=== PATIENT | male | born 1990 | race Caucasian/White ===

== ENCOUNTER 2019-01-05 00:27 | Emergency (ER) | payer BC, MEDICAID ==
[2019-01-05 00:42] VITALS: BP 142/99
[2019-01-05] MEDS ORDERED: Ketorolac 60 MG/2 ML SDV IM ONE (00:50)
[2019-01-05] MEDS ORDERED: Acetaminophen/HYDROcodone 325-5 MG Tab PO ONE (00:50)
[2019-01-05] MEDS ORDERED: Acetaminophen 325 MG Tab PO ONE (00:51)
--- NOTE | 2019-01-05 00:57 | EDM.PDOC ---
ED HPI GENERAL MEDICAL PROBLEM - General Chief Complaint: ENT Problem Stated Complaint: TOOTHACHE Time Seen by Provider: 01/05/19 00:52 Source of Information: Reports: Patient History Limitations: Reports: No Limitations - History of Present Illness INITIAL COMMENTS - FREE TEXT/NARRATIVE: pt has a painful left lower molar. He has a temp of 102. He is on augmentin. He was seen in the walk in clinic yesterday. He has a bad headache behind his left eye. He does hurt when he swallows. Onset: Today, Gradual Duration: Hour(s): Location: Reports: Head, Neck, Other (pt is not having pain over his sinuses. ) Associated Symptoms: Reports: Fever/Chills, Headaches Tooth/Teeth Pain Score (Numeric/FACES): 8 - Related Data Allergies Allergy/AdvReac Type Severity Reaction Status Date / Time Sulfa (Sulfonamide Allergy Hives Verified 01/05/19 00:36 Antibiotics) Home Meds: Home Meds Amoxicillin/Potassium Clav [Augmentin 875-125 Tablet] 1 tab PO BID 01/05/19 [ History] Past Medical History - Past Health History Medical/Surgical History: Denies Medical/Surgical History Musculoskeletal History: Reports: Fracture Psychiatric History: Reports: Anxiety - Infectious Disease History Infectious Disease History: Reports: Chicken Pox Social & Family History - Family History Family Medical History: Unobtainable - Tobacco Use Smoking Status *Q: Never Smoker Second Hand Smoke Exposure: No - Caffeine Use Caffeine Use: Reports: Coffee - Recreational Drug Use Recreational Drug Use: No - Living Situation & Occupation Living situation: Reports: Single Occupation: Employed ED ROS ENT - Review of Systems Review Of Systems: See Below Constitutional: Reports: Fever, Chills, Malaise HEENT: Reports: Dental Pain Respiratory: Reports: No Symptoms Cardiovascular: Reports: No Symptoms Endocrine: Reports: No Symptoms GI/Abdominal: Reports: No Symptoms : Reports: No Symptoms Musculoskeletal: Reports: No Symptoms Skin: Reports: No Symptoms Neurological: Reports: No Symptoms Psychiatric: Reports: No Symptoms ED EXAM, ENT - Physical Exam Exam: See Below Text/Narrative:: pt has a very carious tooth on the left lower. He is tender to palpate over the neck area. He has mild facial swelling He is not tender over the maxillary suinus. Exam Limited By: No Limitations General Appearance: Alert, Moderate Distress Ears: Other (left drum has a small amount of fluid behind it. ) Nose: Normal Inspection Mouth/Throat: Pharyngeal Erythema, Throat Swelling Head: Atraumatic Neck: Lymphadenopathy (L) Respiratory/Chest: No Respiratory Distress Cardiovascular: Regular Rate, Rhythm Course - Vital Signs Last Recorded V/S: Last Vital Signs Temp 39.2 C H 01/05/19 00:41 Pulse 78 01/05/19 00:41 Resp 16 01/05/19 00:41 BP 142/99 H 01/05/19 00:41 Pulse Ox 98 01/05/19 00:41 - Orders/Labs/Meds Labs: Laboratory Tests 01/05/19 Range/Units 00:51 WBC 10.1 (4.5-11.0) K/uL RBC 5.47 (4.30-5.90) M/uL Hgb 15.9 H (12.0-15.0) g/dL Hct 45.6 (40.0-54.0) % MCV 83 (80-98) fL MCH 29 (27-31) pg MCHC 35 (32-36) % Plt Count 268 (150-400) K/uL Neut % (Auto) 42 (36-66) % Lymph % (Auto) 46 H (24-44) % [place] % (Auto) 8 H (2-6) % Eos % (Auto) 4 (2-4) % Baso % (Auto) 1 (0-1) % Meds: Medications Discontinued Medications Generic Name Dose Route Start Last Admin Trade Name Freq PRN Reason Stop Dose Admin Acetaminophen 325 mg 01/05/19 00:51 Tylenol PO 01/05/19 00:52 NOW ONE Hydrocodone Bitart/Acetaminophen 1 tab 01/05/19 00:50 01/05/19 01:01 [place] 325-5 Mg PO 01/05/19 00:51 1 tab ONETIME ONE Administration Ceftriaxone Sodium 1 gm/ 0 gm 01/05/19 01:08 01/05/19 01:24 Lidocaine HCl 2.1 ml IM 01/05/19 01:09 1 inj ONETIME ONE Administration Ketorolac Tromethamine 60 mg 01/05/19 00:50 01/05/19 01:02 Toradol IM 01/05/19 00:51 60 mg ONETIME ONE Administration - Re-Assessments/Exams Free Text/Narrative Re-Assessment/Exam: 01/05/19 01:10 pt was given torodol 60 mg im, he was given rocephen 1 gm im. Departure - Departure Time of Disposition: 01:11 Disposition: Home, Self-Care 01 Condition: Fair Clinical Impression: Pharyngitis, Infected tooth - Discharge Information Instructions: Tooth Injuries, [id number] Referrals: PCP,None [Primary Care Provider] - Forms: ED Department Discharge Care Plan Goals: tylenol and motrin for pain and fever, continue augmentin, dental appt Saturday. norco 5/325 q6h prn for severe pain #6
[2019-01-05] MEDS ORDERED: cefTRIAXone 1 GM, Lidocaine 1% 2.1 ML IM ONE ×2 (01:08)
== END 2019-01-05 01:56 | disposition home or self-care (01) ==
LOC: JP.ED 00:27
DX: J02.9 Acute pharyngitis, unspecified (principal); K04.7 Periapical abscess without sinus; Z88.2 Allergy status to sulfonamides
CPT/HCPCS: 36415; 85025; 87081; 87430; 96372; 99283; A9270; J0696; J1885; J2001

== ENCOUNTER 2019-01-17 21:44 | Emergency (ER) | payer MEDICAID ==
[2019-01-17 22:11] VITALS: BP 129/81; PULSE 74
[2019-01-17] MEDS ORDERED: Dental Adhesive 1 Tube DENT ONE (22:42)
[2019-01-17] MEDS ORDERED: Tetracaine HCl/PF 0.5% 4 ML Bottle EYELF ONE (22:54)
[2019-01-17] MEDS ORDERED: HYDROmorphone 1 MG/ML Syringe IM ONE (23:05)
--- NOTE | 2019-01-17 23:06 | EDM.PDOC ---
ED HPI GENERAL MEDICAL PROBLEM - General Chief Complaint: ENT Problem Stated Complaint: TOOTHACHE Time Seen by Provider: 01/17/19 22:39 Source of Information: Reports: Patient History Limitations: Reports: No Limitations - History of Present Illness INITIAL COMMENTS - FREE TEXT/NARRATIVE: went to this am for fx tooth, bottom left #18 Onset: Today Location: Reports: Other (#18 tooth) Severity: Severe Improves with: Reports: None Worsens with: Reports: None Treatments MUSIC HISTORIAN: Reports: Other (see below) (tylenol #3) Left Lower Tooth/Teeth Pain Score (Numeric/FACES): 7 - Related Data Allergies Allergy/AdvReac Type Severity Reaction Status Date / Time Sulfa (Sulfonamide Allergy Hives Verified 01/17/19 22:03 Antibiotics) Home Meds: Home Meds Acetaminophen with Codeine [Acetaminophen-Cod #3] 1 - 2 tab PO Q4H PRN 01/17/19 [History] NK [No Known Home Meds] 01/17/19 [History] Past Medical History - Past Health History Medical/Surgical History: Denies Medical/Surgical History Gastrointestinal History: Reports: GERD Musculoskeletal History: Reports: Fracture Psychiatric History: Reports: Anxiety - Infectious Disease History Infectious Disease History: Reports: Chicken Pox Social & Family History - Family History Family Medical History: Unobtainable - Tobacco Use Smoking Status *Q: Former Smoker Used Tobacco, but Quit: Yes Month/Year Tobacco Last Used: 2014 - Caffeine Use Caffeine Use: Reports: Coffee - Living Situation & Occupation Living situation: Reports: Single Occupation: Employed ED ROS GENERAL - Review of Systems Review Of Systems: See Below Constitutional: Reports: Other (oral pain) HEENT: Reports: No Symptoms (jaw pain) Respiratory: Reports: No Symptoms Skin: Reports: No Symptoms Neurological: Reports: No Symptoms Psychiatric: Reports: No Symptoms ED EXAM, GENERAL - Physical Exam Exam: See Below Exam Limited By: No Limitations General Appearance: Alert, WD/WN, No Apparent Distress Throat/Mouth: Normal Inspection, Normal Lips, Normal Gums, Normal Voice, Other ( #18 tooth, fractured; pain and swelling) Neck: Normal Inspection, Supple, Full Range of Motion Respiratory/Chest: No Respiratory Distress, Lungs Clear Cardiovascular: Regular Rate, Rhythm Extremities: Normal Range of Motion Neurological: Alert, Oriented, CN II-XII Intact, Normal Cognition, Normal Gait Psychiatric: Normal Affect, Normal Mood Skin Exam: Warm, Dry, Intact Course - Vital Signs Last Recorded V/S: Last Vital Signs Temp 96.3 F 01/17/19 22:10 Pulse 74 01/17/19 22:10 Resp 17 01/17/19 22:10 BP 129/81 01/17/19 22:10 Pulse Ox 96 01/17/19 22:10 - Orders/Labs/Meds Meds: Medications Discontinued Medications Generic Name Dose Route Start Last Admin Trade Name Jose Guadalupe PRN Reason Stop Dose Admin Denture Adhesive 1 applic 01/17/19 22:42 01/17/19 23:01 Dentemp Custom DENT 01/17/19 22:43 1 applic ONETIME ONE Administration Hydromorphone HCl 1 mg 01/17/19 23:05 01/17/19 23:10 Dilaudid IM 01/17/19 23:06 1 mg ONETIME ONE Administration Tetracaine HCl 0 ml 01/17/19 22:54 01/17/19 23:01 Tetracaine 0.5% Steri-Unit [place] EYELF 01/17/19 22:55 1 applic ASDIRECTED ONE Administration - Re-Assessments/Exams Free Text/Narrative Re-Assessment/Exam: 01/18/19 13:17 Given dilaudid 1 mg IM; has a cdl a driver; is to follow up with dentist on Saturday. Departure - Departure Time of Disposition: 22:47 Disposition: Home, Self-Care 01 Condition: Good Clinical Impression: Broken tooth - Discharge Information *PRESCRIPTION DRUG MONITORING PROGRAM REVIEWED*: Not Applicable *COPY OF PRESCRIPTION DRUG MONITORING REPORT IN PATIENT WON: Not Applicable Instructions: Tooth Injuries, [id number] Referrals: PCP,None [Primary Care Provider] - Forms: ED Department Discharge Additional Instructions: Get in with your dentist Ice can be helpful DO not drive if you are taking pain medicine - Problem List & Annotations (1) Broken tooth SNOMED Code(s): 73944653 Code(s): S02.5XXA - FRACTURE OF TOOTH (TRAUMATIC), INIT FOR CLOS FX Status : Acute Priority: Low Qualifiers: Encounter type: initial encounter Fracture type: closed Qualified Code(s) : S02.5XXA - Fracture of tooth (traumatic), initial encounter for closed fracture - Problem List Review Problem List Initiated/Reviewed/Updated: Yes
== END 2019-01-17 23:33 | disposition home or self-care (01) ==
LOC: JP.ED 21:44
DX: K03.81 Cracked tooth (principal); Z88.2 Allergy status to sulfonamides; Z87.891 Personal history of nicotine dependence
CPT/HCPCS: 96372; 99282; A9270; J1170

== ENCOUNTER 2021-12-08 20:58 | Emergency (ER) | payer MEDICAID | END 2021-12-08 22:04 | disposition left against medical advice (07) | LOC: JP.ED 20:58 | DX: R11.10 Vomiting, unspecified (principal); Z53.21 Procedure and treatment not carried out due to patient leaving prior to being seen by health care provider ==

== ENCOUNTER 2022-01-22 22:45 | Emergency (ER) | payer MEDICAID ==
[2022-01-22 23:05] VITALS: BP 126/85; PULSE 71
[2022-01-22] MEDS ORDERED: Erythromycin Base 0.5% Ophth Oint 1 GM Tube EYELF ONE (23:22)
[2022-01-22] MEDS ORDERED: Proparacaine 0.5% Ophth Soln 15 ML Bottle EYELF ONE (23:22)
== END 2022-01-23 00:15 | disposition home or self-care (01) ==
LOC: JP.ED 22:45
DX: T15.02XA Foreign body in cornea, left eye, initial encounter (principal); Z88.2 Allergy status to sulfonamides
CPT/HCPCS: 65220; 99283; A9270

== ENCOUNTER 2023-02-14 23:48 | Emergency (ER) | payer MEDICAID ==
[2023-02-14 23:58] VITALS: BP 132/77; PULSE 71
[2023-02-15] MEDS ORDERED: Proparacaine 0.5% Ophth Soln 15 ML Bottle EYELF ONE (00:07)
== END 2023-02-15 00:32 | disposition home or self-care (01) ==
LOC: JP.ED 23:48
DX: H16.8 Other keratitis (principal); F17.210 Nicotine dependence, cigarettes, uncomplicated; Z88.1 Allergy status to other antibiotic agents
CPT/HCPCS: 99282; 99283; A9270-GY